=== PATIENT | male | born 1975 | race Caucasian/White ===

== ENCOUNTER → 2017-08-24 | Outpatient (CLI) | payer OTHER | LOC: FIMAGING 13:42 | PROVIDERS: ATTEND Physician Assistant | DX: S52.042D Displaced fracture of coronoid process of left ulna, subsequent encounter for closed fracture with routine healing (principal); S52.025D Nondisplaced fracture of olecranon process without intraarticular extension of left ulna, subsequent encounter for closed fracture with routine healing; M25.422 Effusion, left elbow ==